=== PATIENT | female | born 1940 | race Two or more races ===

== ENCOUNTER 2021-04-09 07:59 | Day surgery (SDC) | payer OTHER | END 2021-04-09 13:40 | disposition home or self-care (01) | LOC: AMB-ENDOS 07:59 | PROVIDERS: ATTEND Surgery | DX: D12.5 Benign neoplasm of sigmoid colon (principal); Z20.822 Contact with and (suspected) exposure to COVID-19 ==

== ENCOUNTER → 2021-06-08 08:00 | Outpatient (CLI) | payer OTHER ==
[~2021-06-08 08:00] MED LIST: FOLIC PO; LOSART PO; NORV PO; SIMVAST PO; SYNTH PO
== END | disposition home or self-care (01) ==
LOC: LAB 08:00 → ADM 08:45 → EDSTATUS 06-10 08:45 → CIR.AMB 06-10 08:45
PROVIDERS: ATTEND Surgery
DX: U07.1 COVID-19 (principal); I10 Essential (primary) hypertension; R15.9 Full incontinence of feces; Z86.010 Personal history of colon polyps; Z85.038 Personal history of other malignant neoplasm of large intestine; K57.30 Diverticulosis of large intestine without perforation or abscess without bleeding; Z01.812 Encounter for preprocedural laboratory examination; Z01.810 Encounter for preprocedural cardiovascular examination; Z01.811 Encounter for preprocedural respiratory examination